=== PATIENT | female | born 1980 | race Hispanic/Latino ===

== ENCOUNTER 2023-02-01 09:53 | Outpatient (CLI) | payer OTHER | END 2023-02-01 09:54 | disposition home or self-care (01) | LOC: CSHMAMMO 09:53 | PROVIDERS: ATTEND Nurse Practitioner Family | DX: Z12.31 Encounter for screening mammogram for malignant neoplasm of breast (principal) | CPT/HCPCS: 77063; 77067 ==

== ENCOUNTER 2023-09-04 08:30 | Outpatient (CLI) | payer OTHER | END 2023-09-04 08:31 | disposition home or self-care (01) | LOC: CSHULT 08:30 | PROVIDERS: ATTEND Family Medicine | DX: R10.11 Right upper quadrant pain (principal) | CPT/HCPCS: 76700 ==